=== PATIENT | female | born 1970 | race Caucasian/White ===

== ENCOUNTER 2020-09-18 09:20 | Inpatient (IN) ==
[2020-09-18 11:18] LABS: Appearance Urine Clear (Clear); Bilirubin Urine Negative (Negative); Blood Urine Negative (Negative); Color Urine Yellow; Glucose Urine UA Negative (Negative); Ketones Urine Negative (Negative); Leukocyte Esterase Urine Negative (Negative); Nitrite Urine Negative (Negative); Protein Urine Negative (Negative); Urobilinogen Urine Negative (Negative)
[2020-09-18 11:58] LABS: Amphetamines+Metham, Urine Neg (Neg); Barbiturates, Urine Neg (Neg); Benzodiazepine, Urine Neg (Neg); Cocaine, Urine Neg (Neg); MDMA (Ecstacy), Urine Neg (Neg); Methadone, Urine Neg (Neg); Opiate, Urine Neg (Neg); Phencyclidine, Urine Neg (Neg)
[2020-09-18 13:40] LABS: Basophils # (auto) 0.01 K/uL (0-0.2); Basophils % (auto) 0.1 %; Eosinophils # (auto) 0.04 K/uL (0-0.5); Eosinophils % (auto) 0.5 %; Hematocrit (blood only) 41.4 % (37-47); Hemoglobin 14.6 g/dL (12.0-16.0); Immature Granulocytes # (auto) 0.02 K/uL (0.00-0.02); Immature Granulocytes % (auto) 0.2 %; Mean Corpuscular Hgb Conc 35.3 g/dL (32-36); Mean Corpuscular Volume 90.8 fL (80-100); Mean Platelet Volume 9.9 fL (7.4-10.4); Monocytes # (auto) 0.38 K/uL (0.11-0.59); Monocytes % (auto) 4.7 %; Neutrophils # (auto) 4.76 K/uL (1.4-6.5); Neutrophils % (auto) 59.5 %; Platelet Count 339 K/uL (130-400); RDW Coefficient of Variation 13.1 % (11.5-14.5); RDW Standard Deviation 43.6 fL (36.4-46.3); Red Blood Count 4.56 M/uL (4.2-5.4); White Blood Count 8.01 K/uL (4.8-10.8)
[2020-09-18 14:06] LABS: Albumin Level 3.8 gm/dl (3.4-5.0); BUN Creatinine Ratio 14.1 (10-20); Bilirubin,Total 0.2 mg/dl (0.2-1); Calcium 8.7 mg/dl (8.5-10.1); Est GFR (Non-African American) 95.8; Globulin 3.9 gm/dl (2.5-4.0); Potassium 3.7 mmol/L (3.5-5.1); Total Protein 7.7 gm/dl (6.4-8.2)
[2020-09-18 14:10] LABS: Thyroid Stimulating Hormone 0.56 uIu/ml (0.300-4.500)
[2020-09-18 14:26] LABS: Acetaminophen < 2 ug/ml (10-30)
[2020-09-18 14:27] LABS: Salicylate < 1.7 mg/dl (2.8-20)
--- NOTE | 2020-09-18 19:15 | Emergency Department Note ---
Impression & Plan Depression with suicidal ideation, Alcohol intoxication ED Provider Note NAME: JACIEL HARDY AGE: 50 SEX: F ARRIVES VIA: Ambulance INFORMANT: Patient, EMS ED PROVIDER(S): Yanet Grove MD CHIEF COMPLAINT: [facility] PLAN: Disposition: Inpatient referral Condition: Fair Referral: Inpatient psychiatry MEDICAL DECISION MAKING:This pt was evaluated and appeared to be anxious and te arful. Patient was evaluated and noted to have a blood alcohol of 170. This means the patient presented to school today with a blood alcohol of approximately 300. Patient made statements about suicidal intent and plan but would not reiterate the plan to staff. She states she would never commit s uicide because she will not return to this earth or this life. Her suicidal assessment seems not to line up with her verbal assessment at the bedside. The patient stated she is concerned about the repercussions of the police and ambulance crew and her principal seeing her breakdown today. I am concerned for her safety and feel she is high risk. The patient has been referred for inpatient treatment on a voluntary basis although there is a 302 petition. Case was signed out to Dr. Gonzalez awaiting final disposition. Triage Nursing notes reviewed. Prior medical records reviewed Vital Signs: reviewed and remarkable for hypertension Differential diagnosis: Mood disorder, infection, hypoglycemia, electrolyte abnormalities, cardiac sources, intracerebral event, toxicologic, trauma, neurologic, as well as other pathologies. Laboratory studies: See below Consultation(s): Mental health HPI: 50/F arrives for evaluation of mental illness. This patient was evaluated and appeared to be tearful, anxious. Initially she had difficulty speaking, was curled in a ball and kissing a stuffed animal. Patient stated this was her cat's toy. She states her cat "came to her" in October 2019. 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 Apparently she proceeded to barricade herself in the home. EMS and police were involved. The patient states her boss/principal was there holding her hand. She does live at home and states she has a "crazy cat lady." She states she is a burden to her 2 sisters and nephew and wishes to drive to [place] and live out her remaining time sitting on the beach. She is not sure how she can "last another 20 years." She prays for "devastating illness but is cursed by good health." Patient states she was in the past but is " does not want to talk about it." ROS: See above HPI for pertinent positives & negatives. A total of 10 systems reviewed and were otherwise negative. PAST MEDICAL HISTORY:See Below PAST SURGICAL HISTORY:See Below FAMILY HISTORY:See Below SOCIAL HISTORY:See Below HOME MEDICATIONS:See Below ALLERGIES:See Below VITALS:See Below PHYSICAL EXAMINATION: Vital signs reviewed. General: Tearful and anxious 50-year-old female, curled in a ball on the bed HEENT: No scleral icterus, positive conjunctival injection, atraumatic. Flushed Cardiovascular: Regular rate and rhythm, no extra sounds. Pulmonary: Clear to auscultation bilaterally, normal work of breathing. Abdomen: Soft, nontender, nondistended, positive bowel sounds. Musculoskeletal: Atraumatic, no peripheral edema. Neurologic: Patient awake alert and oriented x 3 Psych: Positive SI, denies current plan. Negative homicidal ideation Skin: Warm, dry, no rash Yanet Grove MD Past Med/Surg History Medical History (Updated 09/20/20 @ 13:36 by Cony Duke PA-C) Alcohol dependence Alcohol intoxication PTSD (post-traumatic stress disorder) Social History (Updated 09/18/20 @ 19:15 by Yanet Grove MD) Smoking Status: Current every day smoker Tobacco Type: Cigars Hx Alcohol Use: Yes Preferred Language: Estonian Communication Ability: Effective Salvage Inspector Required: No Beliefs That Will Affect Care: None marital status: Current Living Situation: Alone Current Living Situation Comment: Lives alone with her cat current occupational status: employed 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 Feels Safe at Home: Yes Assistive Devices: None Allergies Allergies Allergy/AdvReac Type Severity Reaction Status Date / Time No Known Allergies Allergy Unverified 09/19/20 03:13 Home Meds Home Medications Medication Instructions Recorded Confirmed levonorgestrel-ethinyl estrad 1 tab PO DAILY 09/18/20 09/18/20 [Sronyx] Results & Data (ED) Vital Signs Vital Signs - 24 hr 09/18/20 09:30 09/18/20 18:31 Temperature 36.9 C Temperature Source Oral Pulse Rate 111 H Pulse Rate [Finger] 90 Respiratory Rate 18 17 Blood Pressure 171/108 H Blood Pressure [Left Arm] 155/86 H Blood Pressure Mean 129 Blood Pressure Mean [Left Arm] 109 Pulse Oximetry 99 98 Oxygen Delivery Method Room Air Room Air Sepsis Recent Fever Within 48 Hours No Sepsis New/Unexplained Change in Mental Status N/A Sepsis Action Taken by Nursing No Action Required Home Medications Current Medication List: was personally reviewed by me Laboratory Data Attestation: I reviewed the patient's lab results. Result diagrams: 09/18/20 13:14 09/18/20 13:14 Lab Results 09/18/20 09/18/20 09/18/20 Range/Units 10:17 10:17 10:17 WBC (4.8-10.8) K/uL RBC (4.2-5.4) M/uL Hgb (12.0-16.0) g/dL Hct (37-47) % MCV (80-100) fL MCH (25-34) pg MCHC (32-36) g/dL RDW Std Deviation (36.4-46.3) fL RDW Coeff of Jackson (11.5-14.5) % Plt Count (130-400) K/uL MPV (7.4-10.4) fL Immature Gran % (Auto) % Neut % (Auto) % Lymph % (Auto) % [place] % (Auto) % Eos % (Auto) % Baso % (Auto) % Neut # (Auto) (1.4-6.5) K/uL Lymph # (Auto) (1.2-3.4) K/uL [place] # (Auto) (0.11-0.59) K/uL Eos # (Auto) (0-0.5) K/uL Baso # (Auto) (0-0.2) K/uL Immature Gran # (Auto) (0.00-0.02) K/uL Sodium (136-145) mmol/L Potassium (3.5-5.1) mmol/L Chloride (98-107) mmol/L Carbon Dioxide (21-32) mmol/L Anion Gap (3-11) BUN (7-18) mg/dl Creatinine (0.6-1.2) mg/dl Est Cr Clr Drug Dosing ml/min Est GFR ( Amer) Est GFR (Non-Af Amer) BUN/Creatinine Ratio (10-20) Glucose (70-99) mg/dl Calcium (8.5-10.1) mg/dl Total Bilirubin (0.2-1) mg/dl AST (15-37) U/L ALT (12-78) U/L Alkaline Phosphatase (45-117) U/L Total Protein (6.4-8.2) gm/dl Albumin (3.4-5.0) gm/dl Globulin (2.5-4.0) gm/dl Albumin/Globulin Ratio (0.9-2) TSH (0.300-4.500) uIu/ml Urine Color Yellow Urine Appearance Clear (Clear) Urine pH 5.0 (4.5-7.5) Ur Specific [place] 1.010 (1.000-1.030) Urine Protein Negative (Negative) Urine Glucose (UA) Negative (Negative) Urine Ketones Negative (Negative) Urine Blood Negative (Negative) Urine Nitrite Negative (Negative) Urine Bilirubin Negative (Negative) Urine Urobilinogen Negative (Negative) Ur Leukocyte Esterase Negative (Negative) Urine Test Negative (Negative) Salicylates (2.8-20) mg/dl Urine Opiates Screen Neg (Neg) Ur Methadone, Qual Neg (Neg) Acetaminophen (10-30) ug/ml Urine Barbiturates Neg (Neg) Ur Phencyclidine (PCP) Neg (Neg) U Amphetamin/Meth Scrn Neg (Neg) MDMA (Ecstasy) Screen Neg (Neg) U Benzodiazepines Scrn Neg (Neg) Ur Cocaine Metabolite Neg (Neg) U Marijuana (THC) Screen Neg (Neg) Ethyl Alcohol mg/dL (0-3) mg/dl COVID-19 Eval Order SARS-CoV-2 (PCR) (Negative) Influenza Type A (PCR) (Neg) Influenza Type B (PCR) (Neg) RSV (RT-PCR) (Neg) 09/18/20 09/18/20 09/18/20 Range/Units 13:14 13:14 13:14 WBC 8.01 (4.8-10.8) K/uL RBC 4.56 (4.2-5.4) M/uL Hgb 14.6 (12.0-16.0) g/dL Hct 41.4 (37-47) % MCV 90.8 (80-100) fL MCH 32.0 (25-34) pg MCHC 35.3 (32-36) g/dL RDW Std Deviation 43.6 (36.4-46.3) fL RDW Coeff of Jackson 13.1 (11.5-14.5) % Plt Count 339 (130-400) K/uL MPV 9.9 (7.4-10.4) fL Immature Gran % (Auto) 0.2 % Neut % (Auto) 59.5 % Lymph % (Auto) 35.0 % [place] % (Auto) 4.7 % Eos % (Auto) 0.5 % Baso % (Auto) 0.1 % Neut # (Auto) 4.76 (1.4-6.5) K/uL Lymph # (Auto) 2.80 (1.2-3.4) K/uL [place] # (Auto) 0.38 (0.11-0.59) K/uL Eos # (Auto) 0.04 (0-0.5) K/uL Baso # (Auto) 0.01 (0-0.2) K/uL Immature Gran # (Auto) 0.02 (0.00-0.02) K/uL Sodium 142 (136-145) mmol/L Potassium 3.7 (3.5-5.1) mmol/L Chloride 112 H (98-107) mmol/L Carbon Dioxide 21 (21-32) mmol/L Anion Gap 10.0 (3-11) BUN 10 (7-18) mg/dl Creatinine 0.74 (0.6-1.2) mg/dl Est Cr Clr Drug Dosing 91.0 ml/min Est GFR ( Amer) 111.0 Est GFR (Non-Af Amer) 95.8 BUN/Creatinine Ratio 14.1 (10-20) Glucose 84 (70-99) mg/dl Calcium 8.7 (8.5-10.1) mg/dl Total Bilirubin 0.2 (0.2-1) mg/dl AST 14 L (15-37) U/L ALT 19 (12-78) U/L Alkaline Phosphatase 51 (45-117) U/L Total Protein 7.7 (6.4-8.2) gm/dl Albumin 3.8 (3.4-5.0) gm/dl Globulin 3.9 (2.5-4.0) gm/dl Albumin/Globulin Ratio 1.0 (0.9-2) TSH 0.560 (0.300-4.500) uIu/ml Urine Color Urine Appearance (Clear) Urine pH (4.5-7.5) Ur Specific [place] (1.000-1.030) Urine Protein (Negative) Urine Glucose (UA) (Negative) Urine Ketones (Negative) Urine Blood (Negative) Urine Nitrite (Negative) Urine Bilirubin (Negative) Urine Urobilinogen (Negative) Ur Leukocyte Esterase (Negative) Urine Test (Negative) Salicylates < 1.7 L (2.8-20) mg/dl Urine Opiates Screen (Neg) Ur Methadone, Qual (Neg) Acetaminophen < 2 L (10-30) ug/ml Urine Barbiturates (Neg) Ur Phencyclidine (PCP) (Neg) U Amphetamin/Meth Scrn (Neg) MDMA (Ecstasy) Screen (Neg) U Benzodiazepines Scrn (Neg) Ur Cocaine Metabolite (Neg) U Marijuana (THC) Screen (Neg) Ethyl Alcohol mg/dL (0-3) mg/dl COVID-19 Eval Order SARS-CoV-2 (PCR) (Negative) Influenza Type A (PCR) (Neg) Influenza Type B (PCR) (Neg) RSV (RT-PCR) (Neg) 09/18/20 09/18/20 09/18/20 Range/Units 13:14 18:39 18:39 WBC (4.8-10.8) K/uL RBC (4.2-5.4) M/uL Hgb (12.0-16.0) g/dL Hct (37-47) % MCV (80-100) fL MCH (25-34) pg MCHC (32-36) g/dL RDW Std Deviation (36.4-46.3) fL RDW Coeff of Jackson (11.5-14.5) % Plt Count (130-400) K/uL MPV (7.4-10.4) fL Immature Gran % (Auto) % Neut % (Auto) % Lymph % (Auto) % [place] % (Auto) % Eos % (Auto) % Baso % (Auto) % Neut # (Auto) (1.4-6.5) K/uL Lymph # (Auto) (1.2-3.4) K/uL [place] # (Auto) (0.11-0.59) K/uL Eos # (Auto) (0-0.5) K/uL Baso # (Auto) (0-0.2) K/uL Immature Gran # (Auto) (0.00-0.02) K/uL Sodium (136-145) mmol/L Potassium (3.5-5.1) mmol/L Chloride (98-107) mmol/L Carbon Dioxide (21-32) mmol/L Anion Gap (3-11) BUN (7-18) mg/dl Creatinine (0.6-1.2) mg/dl Est Cr Clr Drug Dosing ml/min Est GFR ( Amer) Est GFR (Non-Af Amer) BUN/Creatinine Ratio (10-20) Glucose (70-99) mg/dl Calcium (8.5-10.1) mg/dl Total Bilirubin (0.2-1) mg/dl AST (15-37) U/L ALT (12-78) U/L Alkaline Phosphatase (45-117) U/L Total Protein (6.4-8.2) gm/dl Albumin (3.4-5.0) gm/dl Globulin (2.5-4.0) gm/dl Albumin/Globulin Ratio (0.9-2) TSH (0.300-4.500) uIu/ml Urine Color Urine Appearance (Clear) Urine pH (4.5-7.5) Ur Specific [place] (1.000-1.030) Urine Protein (Negative) Urine Glucose (UA) (Negative) Urine Ketones (Negative) Urine Blood (Negative) Urine Nitrite (Negative) Urine Bilirubin (Negative) Urine Urobilinogen (Negative) Ur Leukocyte Esterase (Negative) Urine Test (Negative) Salicylates (2.8-20) mg/dl Urine Opiates Screen (Neg) Ur Methadone, Qual (Neg) Acetaminophen (10-30) ug/ml Urine Barbiturates (Neg) Ur Phencyclidine (PCP) (Neg) U Amphetamin/Meth Scrn (Neg) MDMA (Ecstasy) Screen (Neg) U Benzodiazepines Scrn (Neg) Ur Cocaine Metabolite (Neg) U Marijuana (THC) Screen (Neg) Ethyl Alcohol mg/dL 170.4 H (0-3) mg/dl COVID-19 Eval Order [facility] at [facility] SARS-CoV-2 (PCR) NEGATIVE (Negative) Influenza Type A (PCR) Negative (Neg) Influenza Type B (PCR) Negative (Neg) RSV (RT-PCR) Negative (Neg) Administered Medications Escitalopram Oxalate (Escitalopram Oxalate 10 Mg Tab) 10 mg PO QAM LISETTE Stop: 10/19/20 12:44 Last Admin: 09/20/20 08:09 Dose: 10 mg Documented by: [id number] Admin: 09/19/20 14:41 Dose: 10 mg Documented by: [id number] Lorazepam (Lorazepam 1 Mg Tab) 1 - 3 mg PO UD PRN; Protocol PRN Reason: EtoH Withdrawal AWSS 6-10+ Stop: 10/19/20 01:16 Last Admin: 09/19/20 10:44 Dose: 1 mg Documented by: [id number] Admin: 09/19/20 08:44 Dose: 1 mg Documented by: [id number] Admin: 09/19/20 06:39 Dose: 1 mg Documented by: [id number] Propranolol HCl (Propranolol Hcl 20 Mg Tab) 20 mg PO BID [facility] Stop: 10/20/20 11:44 Last Admin: 09/20/20 20:02 Dose: 20 mg Documented by: [id number] Admin: 09/20/20 12:40 Dose: 20 mg Documented by: [id number] Discontinued Medications Clonidine HCl (Clonidine Hcl 0.1 Mg Tab) 0.1 mg PO NOW ONE Stop: 09/19/20 01:24 Last Admin: 09/19/20 01:27 Dose: 0.1 mg Documented by: [id number] Gabapentin (Gabapentin 600 Mg Tab) 1,200 mg PO NOW ONE Stop: 09/19/20 08:45 Last Admin: 09/19/20 09:06 Dose: 1,200 mg Documented by: [id number] Gabapentin (Gabapentin 600 Mg Tab) 600 mg PO Q6H LISETTE Stop: 09/19/20 20:01 Last Admin: 09/19/20 20:12 Dose: 600 mg Documented by: [id number] Admin: 09/19/20 14:42 Dose: 600 mg Documented by: [id number] Gabapentin (Gabapentin 600 Mg Tab) 600 mg PO Q8H [facility] Stop: 09/20/20 20:01 Last Admin: 09/20/20 20:02 Dose: 600 mg Documented by: [id number] Admin: 09/20/20 12:39 Dose: 600 mg Documented by: [id number] Admin: 09/20/20 03:54 Dose: 600 mg Documented by: [id number] Lorazepam (Ativan) 1 mg in 2 mls @ 2 mls/min IV NOW STA Stop: 09/18/20 23:13 Last Admin: 09/18/20 23:30 Dose: 2 mls/min Documented by: [id number] Lorazepam (Lorazepam 1 Mg Tab) 1 mg SL NOW STA Stop: 09/18/20 21:40 Last Admin: 09/18/20 22:06 Dose: 1 mg Documented by: [id number] Nitroglycerin (Nitroglycerin Sl 0.4 Mg/Tab Tab) 0.4 mg SL NOW STA Stop: 09/18/20 21:28 Last Admin: 09/18/20 22:07 Dose: 0.4 mg Documented by: [id number] Discharge Plan Visit Data Chief Complaint: Mental Health Evaluation Stated Complaint: [facility] ED Provider: Girma Gonzalez Discharge Problem: Depression with suicidal ideation, Alcohol intoxication Patient Disposition: Admitted As Inpatient Discharge Instructions Interventions: ED Discharge Assessment Last Done: 09/19/20 01:43 Discharge Problem: Alcohol intoxication Qualifiers: Complication of substance-induced condition: with unspecified complication Qualified Code(s): F10.929 - Alcohol use, unspecified with intoxication, unspecified
--- NOTE | 2020-09-18 19:28 | Emergency Department Note ---
ED Visit Note 192: Signout from Dr. Grove. 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 Awaiting psychiatric placement. 2230: Patient was to be admitted to [facility] [address]. but now they want her admitted for alcohol withdrawal. 0 141: Blood pressure improved status post Ativan. Psychiatry did decide to admit the patient to their floor and not to medicine. . : Alcohol intoxication Qualifiers: Complication of substance-induced condition: with unspecified complication Qualified Code(s): F10.929 - Alcohol use, unspecified with intoxication, unspecified
[2020-09-18 19:30] LABS: Influenza A virus by PCR Negative (Neg); Influenza B virus by PCR Negative (Neg); RSV by PCR Negative (Neg); SARS CoV2 RNA(COVID-19) InHosp NEGATIVE (Negative)
[2020-09-18] MEDS ORDERED: NITROGLYCERIN SL 0.4 MG/TAB TAB SL STA (21:27)
[2020-09-18] MEDS ORDERED: LORazepam 1 MG TAB SL STA (21:39)
[2020-09-18 21:47] LABS: Pregnancy Test, Urine Negative (Negative)
[2020-09-18] MEDS ORDERED: LORazepam 1 MG/2 ML VIAL IV STA (23:12)
[2020-09-19] MEDS ORDERED: ALUMINUM/MAGNESIUM SUSP 30 ML UDC PO PRN (01:19)
[2020-09-19] MEDS ORDERED: SODIUM CHLORIDE 0.65% NA SOLN 45 ML (OCEAN) PRN (01:19)
[2020-09-19] MEDS ORDERED: hydrOXYzine HCl 25 MG TAB PO PRN ×2 (01:19)
[2020-09-19] MEDS ORDERED: BISMUTH SUBSALICYLATE LIQD 236 ML PO PRN (01:19)
[2020-09-19] MEDS ORDERED: MAGNESIUM HYDROXIDE SUSP 30 ML UDC PO PRN (01:19)
[2020-09-19] MEDS ORDERED: ACETAMINOPHEN 325 MG TAB PO PRN (01:19)
[2020-09-19] MEDS ORDERED: cloNIDine HCL 0.1 MG TAB PO ONE (01:23)
[2020-09-19] MEDS: LORazepam 1 MG TAB PO PRN ×3 (06:39→10:44)
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
[2020-09-19] MEDS ORDERED: GABAPENTIN 1200MG ALCOHOL WITHDRAWAL LOAD PO STA (08:44)
[2020-09-19] MEDS ORDERED: GABAPENTIN 600 MG TAB PO ONE (08:44)
[2020-09-19] MEDS: ESCITALOPRAM OXALATE 10 MG TAB PO SCH (14:41)
[2020-09-19] MEDS: GABAPENTIN 600 MG TAB PO SCH ×2 (14:42→20:12)
[2020-09-20] MEDS: GABAPENTIN 600 MG TAB PO SCH ×3 (03:54→20:02)
[2020-09-20] MEDS: ESCITALOPRAM OXALATE 10 MG TAB PO SCH (08:09)
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
[2020-09-20] MEDS: PROPRANOLOL HCL 20 MG TAB PO SCH ×2 (12:40→20:02)
[2020-09-21] MEDS: PROPRANOLOL HCL 20 MG TAB PO SCH ×2 (08:10→20:40)
[2020-09-21] MEDS: ESCITALOPRAM OXALATE 10 MG TAB PO SCH (08:10)
[2020-09-21] MEDS: GABAPENTIN 600 MG TAB PO SCH ×2 (08:11→20:39)
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
[2020-09-21] MEDS ORDERED: ESCITALOPRAM OXALATE 10 MG TAB PO ONE (12:30)
[2020-09-22] MEDS: ESCITALOPRAM OXALATE 10 MG TAB PO SCH (08:44)
[2020-09-22] MEDS: PROPRANOLOL HCL 20 MG TAB PO SCH ×2 (08:45→21:23)
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
[2020-09-22] MEDS ORDERED: GABAPENTIN 600 MG TAB PO SCH (20:00)
[2020-09-23] MEDS: PROPRANOLOL HCL 20 MG TAB PO SCH ×2 (08:48→21:27)
[2020-09-23] MEDS: ESCITALOPRAM OXALATE 10 MG TAB PO SCH (08:49)
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
[2020-09-24] MEDS: ESCITALOPRAM OXALATE 10 MG TAB PO SCH (08:23)
[2020-09-24] MEDS: PROPRANOLOL HCL 20 MG TAB PO SCH (08:24)
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
== END 2020-09-24 12:12 | disposition home or self-care (01) | DRG 885 ==
LOC: ED 09:20 → 3S 09-19 01:32